=== PATIENT | female | born 1995 | race Two or more races ===

== ENCOUNTER 2025-10-12 10:58 | Outpatient (AMB) | payer MEDICAID, SELFPAY ==
[2025-10-12 11:16] VITALS: BP 100/62; PULSE 81; RESP 18; TEMP 36.8; O2SAT 98; BMI 38.3
--- NOTE | 2025-10-12 11:16 | OBCLNT_ITS ---
Vital Signs 10/12/25 11:16 Height 1.52 m Height Method Stated Weight 89.131 kg Weight Measurement Method Standing Scale BMI 38.3 BP 100/62 Blood Pressure Source Automatic Cuff Blood Pressure Location Right Upper Arm Position Sitting Respiration 18 Pulse 81 Pulse Source Monitor Temp 98.2 F Temp Source Temporal Artery Scan Pulse Oximetry (%) 98 Oxygen Delivery Method Room Air Allergies/Home Meds Allergies & Medications Allergies No Known Allergies Allergy (Verified 10/12/25 11:17) Medication Reconciliation No Known Home Medications 10/12/25 [History Confirmed 10/12/25] Intake Visit Data Collection New Patient or Established: New Patient (never been to [facility]) Reason for Visit:: OBI TRANSFER Seen by Clinical Staff ONLY (RN/MA): No Occupational Health Nurse Manager Required: Yes Occupational Health Nurse Manager's name/title: GEOFF GREEN Do You Feel Safe at Home: Yes Authorities Contacted: N/A PCP or OBGYN visit in last 3 months: No Hx Now: Yes Are you currently on any form of Control: No Last menstrual period: 02/12/25 Pain Present Currently: No Pain Scale Used: Deluna-Roach/Numerical Pain scale:: 0 Smoking Status Smoking Status: Never smoker Immunizations Flu Vaccine in the Last 12 Months: No Flu Vaccine Exclusion Criteria: No Exclusion Criteria Questionnaires Covid-19 Vaccine Questionnaire Has patient been vacinated for Covid-19 Have you been vacinated for Covid-19: No PHQ-9 PHQ-2 Over the last 2 weeks, how often have you been bothered by any of the following problems? 1. Little interest or pleasure in doing things: not at all 2. Feeling down, depressed, or hopeless: not at all Total score: 0 PHQ-9 3. Trouble falling or staying asleep, or sleeping too much: Not at all 4. Feeling tired or having little energy: Not at all 5. Poor appetite or overeating: Not at all 6. Feeling bad about yourself - or that you are a failure or have let yourself or your family down: Not at all 7. Trouble concentrating on things, such as reading the newspaper or watching television: Not at all 8. Moving or speaking so slowly that other people could have noticed? - Or the opposite - being so fidgety or restless that you have been moving around a lot more than usual: not at all 9. Thoughts that you would be better off or of hurting yourself in some way: Not at all Total score: 0 If you checked off any problems, how difficult have these problems made it for you to do your work, take care of things at home, or get along with other people?: not difficult at all Source: Developed by Drs. Robert Russell, Evonne Jones, Remberto Villafana and colleagues, with an educational panchito from [employer]. Depression screen completed yes Social History Living Situation History Marital Status: Lives With: Family Housing: Apartment Tobacco History Smoking Status: Never smoker Second Hand Smoke Exposure: No Alcohol History Alcohol Intake: Never Domestic Abuse History Do You Feel Safe at Home: Yes History of Present Illness HPI Narrative 30 Years old at gestational age 34.4 weeks ?based on last menstrual period of dated?.04/03/2025 No complaints so far Here for first visit after transfer from Dr Masters [facility] 04/03/2025 Ultrasound will order from [facility] medical problems anemia / needed iv iron infusions last Allergies NKDA Surgical history prior c section social history negative / 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: Past Medical History Past Medical History: No Hx Neurological Disorders, No Hx Cardiac Disorders, No Hx Cancer, No Hx Blood Disorders, Yes Hx Anemia, No Hx Gastrointestinal Disorders, No Hx Renal Disease, No Hx Diabetes Mellitus Type 1 and No Hx Diabetes Mellitus Type 2 OB Initial Visit OB Flowsheet OB Flowsheet Initial Weight: Not Recorded Date -?-?-?-?-?-?-?-?-?-?-?-?- EGA Weight BP Alb Glu CTX Pres Fundal ht FHR Mov Dilation Station Effaceme nt Hx Notes Visit Note 10/12/25 -?-?-?-?-?-?-?-?-?-?-?-?- 34w 4d 89.131 kg 100/62 absent transverse 34 1 44 active Menstrual History Menstrual reliability: definite Flow: normal Menstrual regularity: regular Monthly: Yes Age at menarche: 15 On control pills at conception: No OB History : 2 Para: 1 # of Living Children: 1 Delivery History 1st : Child's name: BABAR VIZCARAR date: 08/19[birth year] sex: male Gestational age at delivery (weeks): 40 Delivery type: weight (lbs): 4082.331 g History of depression before or after : No Infection History & Risk Evaluation History of STDs: none Genetic Screening & History Genetic Screening/Teratology Counseling - Includes patient, baby's father, or anyone in either family with: 1. Patient's age 35 years or older as of estimated date of delivery: No 2. Thalassemia (Belgian, Urdu, Mediterranean, or Background); MCV less than 80: No 3. Neural Tube Defect (Meningomyelocele, Spina Bifida, or Anencephaly): No 4. Congenital Heart Defect: No 5. Down Syndrome: No 6. Edgar-Sachs (Ashkenazi Mu-Ism, Cajun, [place]ian [place]): No 7. Mela Disease (Ashkenazi Mu-Ism): No 8. Familial Dysautonomia (Ashkenazi Mu-Ism): No 9. Sickle Cell Disease or Trait (): No 10. Hemophilia or other blood disorders: No 11. Muscular Dystrophy: No 12. Cystic Fibrosis: No 13. Assumption's Chorea: No 14. Mental Retardation/Autism: No 15. Other inherited genetic or chromosomal disorder: No 16. Maternal Metabolic Disorder (EG,TYPE 1 Diabetes, PKU): No 17. Patient or baby's father had a child with defects not listed above: No 18. Recurrent loss or a stillbirth: No 19. Medications (including supplements, vitamins, herbs or otc drugs)/ill icit/recreational drugs/alcohol since last menstrual period: No 20. Any other: No Infection History Other (see comments) Source: [employer] Review of Systems Review of Systems Systems Reviewed: All systems reviewed, normal except as documented Exam Narrative Physical exam: Alert and oriented x 3 no shortness of breath Pain no chest pain no palpitations Chest clear bilaterally no additional sounds, no wheezing no rales CVS regular rate and rhythm No CVAT Abdomen nontender, normal bowel sounds No guarding no rigidity No hernias Office Procedures [facility] LOC & Office Proc's Nursing/Assessment Patient Status: Initial/New Patient OB Clinic Nursing Assessment: Medication Reconciliation, Update PMH in EMR and Vital Signs OB Clinic Coordination of Care: Complex Care and Chronic Disease 1-5, Education Complex Pt/Fam, Consent,records obtained, informed consent, Lab and Imaging orders, Results/Orders obtained and Staff clarify orders Special Needs: Heart tones New Patient Charge New Patient Point Assignment: [id number] New Patient Point Charge: OPERATIONS BUSINESS PARTNER Level 4 ([id number]) Assessment & Plan Diagnosis / Problem List (1) Previous section: Status: Acute (2) : Status: Acute Qualifiers: Weeks of gestation: 34 weeks Qualified Code(s): Z3A.34 - 34 weeks gestation of (3) Anemia affecting in second trimester: Status: Acute (4) Late care: Status: Acute Additional Plan Plan CBC/ refer to [facility] for anatomy scan / oral iron and follow up in 2 weeks / schedule repeat LTCS at 39 weeks 11/12/2025 or later Follow Up: 2 Weeks
== END 2025-10-12 11:50 | disposition home or self-care (01) ==
LOC: HODSOBC 10:58
PROVIDERS: PCP Family Medicine; Referring Provider Family Medicine; Supervising Provider Obstetrics & Gynecology; Visit Provider Obstetrics & Gynecology
DX: O09.293 Supervision of pregnancy with other poor reproductive or obstetric history, third trimester (principal); O34.211 Maternal care for low transverse scar from previous cesarean delivery; O09.33 Supervision of pregnancy with insufficient antenatal care, third trimester; O09.893 Supervision of other high risk pregnancies, third trimester; O99.013 Anemia complicating pregnancy, third trimester; Z3A.34 34 weeks gestation of pregnancy
CPT/HCPCS: 99204; G0463

== ENCOUNTER → 2025-10-21 | Outpatient (CLI) | payer MEDICAID, SELFPAY ==
--- NOTE | 2025-10-21 15:33 | XR_ITS ---
Examination: Complete OB ultrasound greater than 14 weeks Date and time of exam: October 21, 2025, 1453 hours INDICATIONS: Pelvic pressure during this week Findings: Viable intrauterine single fetus with single amniotic sac presentation cephalic spine maternal right Cardiac motion 148 bpm Placenta anterior grade 2 Medical cord insertion seen Amniotic fluid index 7.9 cm Cervix 3.8 cm Ovaries obscured by bowel gas. Composite estimated gestational age based on BPD, head circumference, abdominal circumference, femur length is 37 weeks 3 days Estimated weight 3141.7 g. Survey of intracranial anatomy, spinal anatomy, abdominal anatomy, four-chamber heart performed with no abnormalities identified. Impression: Viable intrauterine gestation cephalic presentation.
== END | disposition home or self-care (01) ==
PROVIDERS: PCP Obstetrics & Gynecology; Referring Provider Obstetrics & Gynecology; Visit Provider Obstetrics & Gynecology
DX: O26.899 Other specified pregnancy related conditions, unspecified trimester (principal); Z3A.37 37 weeks gestation of pregnancy
CPT/HCPCS: 76805